=== PATIENT | female | born 2000 | race Caucasian/White ===

== ENCOUNTER 2018-05-14 14:05 | Emergency (ER) | payer BC ==
[2018-05-14 14:36] VITALS: BP 129/78
--- NOTE | 2018-05-14 15:28 | ED ---
GI/ HPI - HPI Summary HPI Summary: 17 yo WF h/o UTIs presents with urinary urgency, frequency and foul smelling urine x 10 days. Went to ER 10 days ago given bactrim but sx still persists. Denies f/c/LBP or hematuria - History of Current Complaint Chief Complaint: UCGU Time Seen by Provider: 05/14/18 14:39 Stated Complaint: URINARY COMPLAINT Hx Obtained From: Patient Hx Last Menstrual Period: 02/2018-every 3 months on bcp Onset/Duration: Started Weeks Ago Timing: Constant Severity: Moderate Current Severity: Moderate Pain Intensity: 4 - Allergy/Home Medications Allergies/Adverse Reactions: Allergies Allergy/AdvReac Type Severity Reaction Status Date / Time oxycodone Allergy Rash Verified 05/14/18 14:27 Home Medications: Home Medications Multivitamins/Minerals TAB* [Theragran/minerals TAB*] 1 tab PO DAILY 05/14/18 [ History Confirmed 05/14/18] Pumpkin Seed Extract/Soy Germ [Azo Bladder Control Capsule] 1 cap PO Q12HR PRN 05/14/18 [History Confirmed 05/14/18] buPROPion SR TAB* [Wellbutrin SR TAB*] 150 mg PO BID 05/14/18 [History Confirmed 05/14/18] l-Norgest/E.estradiol-E.estrad [Camrese 0.15-0.03-0.01 mg Tab] 1 tab PO DAILY [History Confirmed 05/14/18] PMH/Surg Hx/FS Hx/Imm Hx Previously Healthy: Yes - Surgical History Surgery Procedure, Year, and Place: laproscopic surgery for endometriosis. eart tubes as child Infectious Disease History: No Infectious Disease History: Denies: Traveled Outside the [place] in Last 30 Days - Social History Alcohol Use: Occasionally Substance Use Type: Reports: Marijuana Substance Use Comment - Amount & Last Used: occasional Smoking Status (MU): Never Smoked Tobacco Review of Systems Constitutional: Negative Eyes: Negative ENT: Negative Cardiovascular: Negative Respiratory: Negative Gastrointestinal: Negative Positive: see HPI, discharge, frequency, urgency Musculoskeletal: Negative All Other Systems Reviewed And Are Negative: Yes Physical Exam - Summary Physical Exam Summary: Vital Signs Reviewed: Yes Appearance: Positive: Well-Appearing Skin: Positive: Warm Head/Face: Positive: Normal Head/Face Inspection Eyes: Positive: Normal, EOMI, BRANDYN ENT: Positive: Normal ENT inspection Neck: Positive: Supple Respiratory/Lung Sounds: Positive: Clear to Auscultation Cardiovascular: Positive: Normal, RRR, S1, S2 Abdomen Positive: Nontender, Soft, No CVA tenderness Musculoskeletal: Positive: Normal Neurological: Positive: CN Intact II-XII Psychiatric: Positive: Normal Vital Signs On Initial Exam: Initial Vitals Temp Pulse Resp BP Pulse Ox 36.7 C 82 16 129/78 99 05/14/18 14:30 05/14/18 14:30 05/14/18 14:30 05/14/18 14:30 05/14/18 14:30 Diagnostics - Vital Signs Vital Signs Temp Pulse Resp BP Pulse Ox 05/14/18 14:30 36.7 C 82 16 129/78 99 - Laboratory Lab Results: Lab Results 05/14/18 Range/Units 14:43 POC Urine Color Yellow POC Urine Clarity Clear POC Urine pH 7.5 (5-9) POC Ur Specif [place] 1.015 (1.010-1.030) POC Urine Protein Negative (Negative) POC Ur Glucose (UA) Negative (Negative) POC Urine Ketones Negative (Negative) POC Urine Blood Negative (Negative) POC Urine Nitrite Negative (Negative) POC Urine Bilirubin Negative (Negative) POC Urine Urobilinogen 0.2 (Negative) POC U Leukocyte Esteras Negative (Negative) Lab Statement: Any lab studies that have been ordered have been reviewed, and results considered in the medical decision making process. GIGU Course/Dx - Course Assessment/Plan: UA only positive for pH of 7.5, no LE or nitrites but will tx due to positive sx and send for Ucx - Diagnoses Provider Diagnoses: UTI (urinary tract infection) Discharge - Sign-Out/Discharge Documenting (check all that apply): Patient Departure All imaging exams completed and their final reports reviewed: Yes - Discharge Plan Condition: Stable Disposition: HOME Prescriptions: Ciprofloxacin TAB* [Cipro 500 MG TAB*] 500 mg PO BID 10 Days #20 tab Ciprofloxacin TAB* [Cipro 500 MG TAB*] 500 mg PO BID 10 Days #20 tab - Billing Disposition and Condition Condition: STABLE Disposition: Home
== END 2018-05-14 15:37 | disposition home or self-care (01) ==
LOC: UCCORT 14:05
DX: N39.0 Urinary tract infection, site not specified (principal); Z88.5 Allergy status to narcotic agent
CPT/HCPCS: 81003; 87086; 99202; G0463